=== PATIENT | male | born 1935 | race Caucasian/White ===

== ENCOUNTER 2024-04-14 12:50 | Outpatient (CLI) | payer MEDICARE, OTHER, SELFPAY ==
[2024-04-14 11:33] LABS: CREATININE 1.1 mg/dL (0.70-1.30); Estimated GFR 64.97 (mL/min/1.73m2)
== END 2024-04-14 12:51 | disposition home or self-care (01) ==
PROVIDERS: PCP Internal Medicine; Visit Provider Radiology Radiation Oncology
DX: C91.10 Chronic lymphocytic leukemia of B-cell type not having achieved remission (principal)
CPT/HCPCS: 36415; 82565